=== PATIENT | male | born 1950 | race Hispanic/Latino ===

== ENCOUNTER 2020-01-16 12:07 | Inpatient (IN) ==
[2020-01-16] MEDS ORDERED: LEVAQUIN 750 MG in NS 150 ML IV ONE (12:58)
[2020-01-16] MEDS ORDERED: VANCOMYCIN 1 GM/NS 1 GM/250 ML IVPB IV ONE (13:00)
[2020-01-16 13:24] LABS: BASO# 0.09 X1000 (0.0-0.2); BASO% 1.1 % (0.0-0.8); EOS# 0.15 X1000 (0.0-0.7); EOS% 1.8 % (0.0-10.0); HEMOGLOBIN 14.2 g/dL (14.0-18.0); LYMPH# 1.62 X1000 (1.2-3.4); LYMPH% 19.7 % (20.5-51.1); MCHC 34.6 g/dL (33-37); MCV 86.7 FL (81-99); MONO# 0.68 X1000 (0.11-0.59); MONO% 8.3 % (1.7-9.3); MPV 10.6 FL (7.4-10.4); NEUT# 5.69 X1000 (1.4-6.5); NEUT% 69.1 % (42.2-75.2); PLT 205 X1000 (130-400); RBC 4.73 XMIL (4.7-6.1); RDW 12.3 % (11.5-14.5); WBC 8.23 X1000 (4.8-10.8)
--- NOTE | 2020-01-16 13:29 | Diag Imaging Result Doc PS360 ---
FOOT COMPLETE LEFT - 01/16/2020 INDICATION: diabetic foot, necrosis of 2-3 webspace/3rd toe TECHNIQUE: Three views COMPARISON: None FINDINGS: Bones are intact and normally aligned. There is diffuse pedal edema. No soft tissue gas. No bony erosions. There is calcified peripheral vascular disease. IMPRESSION: Pedal edema. Peripheral arterial disease. No acute process. Electronically signed by Isiah Chacko 01/16/2020 1:26 PM
[2020-01-16 13:53] LABS: ALB/GLOB RATIO 1.5; CALCIUM 9.3 mg/dL (8.8-10.2); CREATININE 1.5 mg/dL (0.7-1.2); MAGNESIUM 2.1 mg/dL (1.5-2.7); POTASSIUM 4.9 mmol/L (3.5-5.1); TOTAL BILIRUBIN 0.36 mg/dL (0.20-1.00); TOTAL PROTEIN 6.7 g/dL (6.3-8.3)
[2020-01-16] MEDS ORDERED: HUMULIN R IV ONE (14:31)
[2020-01-16] MEDS ORDERED: NS 1,000 ML IV ONE (14:32)
[2020-01-16 14:35] LABS: SED RATE 37 mm/hr (0-15)
[2020-01-16] MEDS ORDERED: ZOFRAN IV PRN (16:05)
[2020-01-16] MEDS: NS 1,000 ML IV SCH (16:33)
--- NOTE | 2020-01-16 16:47 | HISTORY AND PHYSICAL ---
CHIEF COMPLAINT: Left foot erythema, pain and ulcer. HISTORY OF PRESENT ILLNESS: A 69-year-old male with a past medical history of coronary artery disease status post CABG in 2006, prostate surgery 7 years ago in [place], he does not actually know why he had that surgery, but probably was TURP, history of diabetes which seems to be uncontrolled. The patient has no primary care doctor. As per the patient he has been using metformin 850 mg twice a day and insulin Novolin N 20 units twice a day. He does not measure his blood sugar readings at home or blood pressure. He presented today because of redness and pain and ulcer at the plantar surface at the base of third toe, left foot. It is not draining, but he has some redness around that area and also in the dorsal aspect of the left foot, is not associated with nausea, vomiting, fever or chills. Patient denies headache, shortness of breath, nausea, vomiting, constipation. He does have a mild pain in that area, though. He started noticing this lesion and redness last Saturday, 6 days ago. Apparently, he went to the doctor who recommended Bactrim, but he has been getting worse. He has been admitted. We will put this patient on antibiotics. Blood culture has been taken. I will ask the wound care nurse to evaluate this patient and depending on that, I will go ahead and ask surgery department to evaluate this patient as well. I will ask for a hemoglobin A1c and lipid panel as well. His initial blood pressure is slightly elevated, as well as his creatinine. PHYSICAL EXAMINATION: VITAL SIGNS: Temperature 98.1 degrees, pulse 76, respiratory rate 16, blood pressure 156/65, oxygen saturation 100% on room air. HEENT: Head normocephalic, no trauma. PERRLA. NECK: Supple. No JVD. No masses. Central trachea. CHEST: Clear to auscultation. No wheezing. No rales. He has a midline scar in the middle of the sternal area due to previous CABG. ABDOMEN: Soft, nontender, nondistended. No hepatosplenomegaly. EXTREMITIES: No clubbing. He has erythema at the level of the dorsal aspect of the left foot as well as around the base of the 3rd toe with an ulcer that is dark, but is not draining any kind of secretion. NEUROLOGICAL: The patient is awake, alert. He is oriented x3. No focal deficits. REVIEW OF SYSTEMS: All the 14 points of review of systems were reviewed, all of them negative except as per HPI. PAST FAMILY HISTORY: Brother with diabetes and hypertension. His father due to gastric cancer. SOCIAL HISTORY: He works in a farm. He does not drink. He does not smoke or do drugs. PAST SURGICAL HISTORY: He had a CABG in 2006 and also he had some kind of prostate surgery done in [place] 7 years ago. ALLERGIES: Penicillins, apparently this caused rash and itchiness. BLOOD TRANSFUSIONS: None. LABORATORY: WBC 8.2, hemoglobin 14.2, hematocrit 41, platelets 205,000. Sodium 134, potassium 4.9, chloride 94, bicarbonate 24, BUN 24, creatinine 1.5, glucose 349, calcium 9.3, magnesium 2.1. AST 20, ALT 75, alkaline phosphatase 138. ASSESSMENT AND PLAN: 1. Diabetic foot ulcer. Initial x-ray did not show any bone abnormality. He does have some mild pedal edema, and peripheral arterial disease. I will go ahead and put this patient on antibiotics. Wound care has been consulted and probably surgery will be on board. I will monitor. 2. Likely uncontrolled diabetes. His glucose level is 349. As per the patient, he is not measuring his blood sugar at home and he does not have a primary care doctor. He has been using insulin Novolin N at home and metformin twice a day 850 mg. 3. Kidney dysfunction. I am not sure if this is new or chronic, but back in 2018, his creatinine was 1. He is getting some fluids. I will monitor this tomorrow, I will avoid nephrotoxic medications at this moment. 4. Possible hypertension, I will continue to monitor and I will put this patient on blood pressure medication if his blood pressure is still high. 5. I will ask for a hemoglobin A1c. I will also ask for a lipid profile. I will monitor this patient closely. Probably I will consult surgery at some point this or Saturday. cc: Meño Esquivel MD
[2020-01-16] MEDS: HUMALOG SUBQ SCH ×2 (16:57→21:19)
[2020-01-16] MEDS: HUMULIN 70/30 SUBQ SCH ×2 (17:11→21:19)
--- NOTE | 2020-01-16 17:25 | EKG Report ---
Test Performed on : 01/16/2020 1:24:56 PM Test Reason : peripheral vascular disease Blood Pressure : / mmHG Vent. Rate : 073 BPM Atrial Rate : 073 BPM P-R Int : 122 ms QRS Dur : 076 ms QT Int : 370 ms P-R-T Axes : 023 074 095 degrees QTc Int : 407 ms Normal sinus rhythm. Nonspecific ST and T wave abnormality Abnormal ECG When compared with ECG of 14-JUN-2018 12:55, No significant change was found Unconfirmed Result
[2020-01-16] MEDS: AZACTAM 1 GM in NS 50 ML IV SCH (21:19)
[2020-01-17] MEDS: ZYVOX 600 MG/D5W 600 MG/300 ML IVPB SCH ×2 (01:24→14:31)
[2020-01-17] MEDS ORDERED: INSULIN PEN NEEDLES ONE (06:08)
[2020-01-17] MEDS: HUMALOG SUBQ SCH ×4 (06:17→21:12)
[2020-01-17] MEDS: AZACTAM 1 GM in NS 50 ML IV SCH ×3 (06:19→21:12)
[2020-01-17] MEDS: NS 1,000 ML IV SCH ×2 (06:37→08:07)
[2020-01-17 06:43] LABS: BASO# 0.03 X1000 (0.0-0.2); BASO% 0.5 % (0.0-0.8); EOS# 0.08 X1000 (0.0-0.7); EOS% 1.3 % (0.0-10.0); HEMATOCRIT 40.9 % (42.0-52.0); HEMOGLOBIN 13.9 g/dL (14.0-18.0); LYMPH# 1.38 X1000 (1.2-3.4); LYMPH% 21.9 % (20.5-51.1); MCH 29.6 PG (27-31); MONO# 0.46 X1000 (0.11-0.59); MONO% 7.3 % (1.7-9.3); MPV 10.5 FL (7.4-10.4); NEUT# 4.36 X1000 (1.4-6.5); PLT 194 X1000 (130-400); RDW 12.2 % (11.5-14.5); WBC 6.31 X1000 (4.8-10.8)
[2020-01-17 06:52] LABS: HEMOGLOBIN A1C 10.7 % (4.8-6.0)
--- NOTE | 2020-01-17 06:54 | GENERAL SURGERY CONSULTATION ---
DATE: 01/17/2020 HISTORY OF PRESENT ILLNESS: This is a pleasant, 69-year-old, -speaking male who comes in with some left foot discoloration and an ulcer on the base of his third toe posteriorly, on the plantar aspect. He apparently has no medical doctor, is diabetic, and his diabetes care has been suboptimal. He is admitted for care of his left third toe infection. PAST SURGICAL HISTORY: Previous surgery includes coronary artery bypass and some type of prostate surgery. MEDICATIONS: Include metformin 850 mg b.i.d. and Bactrim that he was given this past week. ALLERGIES: He has an allergy to penicillin. FAMILY HISTORY: Pertinent for diabetes, hypertension, gastric cancer in his father. 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 Denies smoking. REVIEW OF SYSTEMS: Really not obtainable but as best I could determine, is typical of what was mentioned in his history of present illness. PHYSICAL EXAMINATION: Vital Signs: He is afebrile, heart rate 65, respiratory rate 18, blood pressure 143/62. No cervical adenopathy. Bilateral breath sounds are present and clear. Heart: Regular rate and rhythm. Abdomen: Soft. Minimal tenderness in the left lower quadrant. Extremities: Femoral pulses are present and normal. He has a normal right dorsalis pedis pulse. I do not palpate pedal pulses in his left foot. The ulceration at the base of the third toe on the plantar aspect, there is no purulence, no fluctuance. There is some mild erythema on the dorsum of his foot at the base of the third toe. ASSESSMENT: Diabetic foot ulcer. The x-ray does not show any evidence of osteomyelitis. Hopefully, this will improve with appropriate diabetes care and antibiotic therapy. I will get a lower extremity arterial study while he is here in the hospital. cc: Jose Bruno MD
[2020-01-17 07:27] LABS: AGAP 11; ALB/GLOB RATIO 1.6; ALBUMIN 3.8 g/dL (3.5-5.0); ALKALINE PHOSPHATASE 112 U/L (32-122); BUN 20 mg/dL (8-22); CALCIUM 9.4 mg/dL (8.8-10.2); CHLORIDE 101 mmol/L (98-107); CHOLESTEROL 136 mg/dL (0-200); COSMO 274; CREATININE 1.2 mg/dL (0.7-1.2); ESTIMATED GFR 60; GLUCOSE 125 mg/dL (70-104); GOT 15 U/L (10-34); GPT 12 U/L (10-44); HDL 46 mg/dL (35-55); LDL 76 mg/dL; POTASSIUM 4.5 mmol/L (3.5-5.1); SODIUM 135 mmol/L (136-145); TCO2 23 mmol/L (25-35); TOTAL BILIRUBIN 0.42 mg/dL (0.20-1.00); TOTAL PROTEIN 6.2 g/dL (6.3-8.3); TRIGLYCERIDES 71 mg/dL (39-160); VLDL 14 mg/dL
[2020-01-17] MEDS ORDERED: HUMULIN 70/30 SUBQ ONE (07:57)
--- NOTE | 2020-01-17 14:04 | PROGRESS NOTE ---
DATE: 01/17/2020 SUBJECTIVE: The patient seems to be getting better. Surgery Department has evaluated this patient, and they have suggested to do a lower extremity arterial study done during this hospitalization. His hemoglobin A1c is 10.7. I have placed this patient on insulin 70/30, 15 units in the morning and 10 in the afternoon, and I will adjust the dose accordingly. PHYSICAL EXAMINATION: Vital signs: Temperature 98.4 degrees, pulse 68, respiratory rate 16, blood pressure 135/68, oxygen saturation 97% on room air. HEENT: Head normocephalic, no trauma, PERRLA. Neck: Supple. No JVD. No masses. Central trachea. Chest: Clear to auscultation. No wheezing. No rales. He has a midline scar in his chest due to previous CABG. Abdomen: Soft, nontender, nondistended. No hepatosplenomegaly. Extremities: No clubbing. He has erythema at the level of the dorsal aspect of the left foot as well as around the dorsal aspect of the base of the 3rd toe. The ulcer is dark. I do not see any drainage. Neurological: Patient is awake, alert. He is oriented. No focal deficits. LABORATORY: WBC 6.3, hemoglobin 13.9, hematocrit 40.9, platelets 194,000. Sodium 135, potassium 4.5, chloride 101, bicarbonate 23, BUN 20, creatinine 1.2, glucose 125, calcium 9.4, triglycerides 71, cholesterol 136, LDL 76, HDL 46. ASSESSMENT AND PLAN: 1. Diabetic foot ulcer with cellulitis at the level of the left foot. This seems to be getting better. I will continue with the same management for now. Wound Care has been consulted as well as Surgery Department. Surgery has requested an arterial study on this patient. 2. Uncontrolled diabetes with a hemoglobin A1c of 10.7. I have placed this patient on insulin 70/30. I will adjust the dose as well. Also I will start this patient on metformin. 3. Kidney dysfunction. This is getting better with IV fluids. The creatinine decreased from 1.5 to 1.2. We will continue to monitor. 4. Possible hypertension. The blood pressure has been up and down between the lowest 107/53 and the highest 156/65. He is on IV fluids. For now I will monitor, but upon discharge likely I will put him on a low dose of HOLLY inhibitor or angiotensin-receptor blockers. cc: Meño Esquivel MD
[2020-01-17] MEDS ORDERED: HUMULIN 70/30 SUBQ SCH (16:30)
[2020-01-17] MEDS: GLUCOPHAGE PO SCH (16:35)
[2020-01-18] MEDS: NS 1,000 ML IV SCH ×3 (01:38→10:42)
[2020-01-18] MEDS: ZYVOX 600 MG/D5W 600 MG/300 ML IVPB SCH ×2 (02:39→12:06)
[2020-01-18] MEDS: AZACTAM 1 GM in NS 50 ML IV SCH ×3 (06:21→21:59)
[2020-01-18] MEDS: HUMALOG SUBQ SCH ×4 (06:24→21:59)
[2020-01-18 06:48] LABS: CALCIUM 8.6 mg/dL (8.8-10.2); CREATININE 1.2 mg/dL (0.7-1.2); POTASSIUM 4.7 mmol/L (3.5-5.1)
[2020-01-18] MEDS: HUMULIN 70/30 SUBQ SCH ×3 (08:00→17:30)
[2020-01-18] MEDS: GLUCOPHAGE PO SCH ×2 (08:50→17:31)
--- NOTE | 2020-01-18 15:00 | PROGRESS NOTE ---
DATE: 01/18/2020 SUBJECTIVE: The patient seems to be feeling better. As per the patient, he felt a little bit dizzy yesterday night, but the blood sugar dropped to the 87 and 89, and he recovered after getting some snack. Today he has an arterial study done, pending results and pending surgery department reevaluation. OBJECTIVE: Vital Signs: Temperature 98.1 degrees, pulse 71, respiratory rate 18, blood pressure 146/68, oxygen saturation 98 on room air. HEENT: Head normocephalic, no trauma, PERRLA. Neck: Supple. No JVD. No masses. Central trachea. Chest: Clear to auscultation. No wheezing. No rales. He has a midline scar in the middle of the chest due to previous CABG. Abdomen: Soft, nontender, nondistended. No hepatosplenomegaly. Extremities: No clubbing. He has some mild edema with erythema at the level of the dorsal aspect of the left foot as well as the base of the 3rd toe, there is an ulcer that is dark, but I do not see any secretion. Neurological: Patient is awake. He is alert. He is oriented. No focal deficits. LABORATORY: Sodium 132, potassium 4.7, chloride 101, bicarbonate 22, BUN 17, creatinine 1.2, glucose 236, calcium 8.6. ASSESSMENT AND PLAN: 1. Diabetic foot ulcer with cellulitis at the level of the left foot, seems to be getting better. Continue with same management. Wound care has been consulted as well as Surgery Department. Surgery has requested an arterial study that has been done already, but pending results. 2. Uncontrolled type 2 diabetes with a hemoglobin A1c of 10.7, I have placed this patient on insulin 70/30. I have readjusted the doses the dose today. I increased the morning dose to 25 and I will keep the night dose on 10. 3. Kidney dysfunction, he is getting IV fluids. His creatinine has been stable. Initially, he came in with a BUN of 24 and creatinine 1.5 and now is down to 17 and 1.2 respectively. 4. Possible hypertension. I will go ahead right now and stop the IV fluids. Since he has diabetes, I will go ahead and put this patient on a low dose of lisinopril to see how he does and protect the kidneys. 5. Overall this patient seems to be getting better. I do believe this patient can be discharged with probably doxycycline to cover methicillin-resistant Staphylococcus aureus infection. We have placed this patient on 70/30 because it is cheap and he does not have a primary care doctor. I talked to the patient and I told him that he needs to have a primary doctor so he can control his blood sugar. He seems to understand. Pending arterial study that has been already done, I readjusted his insulin today. Hopefully this patient can be discharged in the next 24 to 48 hours. cc: Meño Esquivel MD
--- NOTE | 2020-01-18 16:09 | GENERAL SURGERY PROGRESS NOTE ---
DATE: 01/18/2020 SUMMARY: I have not seen his arterial study yet. His wound is a little bit darkish, discolored. After using Vashe, I will recommend use of Silvadene to help provide antibacterial coverage topically. cc: Jose Bruno MD
[2020-01-18] MEDS ORDERED: HUMULIN 70/30 SUBQ SCH (16:30)
--- NOTE | 2020-01-18 17:44 | VASCULAR LAB ---
DATE: 01/18/2020 BUSINESS TECHNOLOGY ANALYST: Romana. REQUESTING PHYSICIAN: Jose Bruno MD. INDICATIONS: Lower extremity ulcer. FINDINGS: Brachial pressure on the right is 152, on the left 155. Low thigh on the right is 191, left is 132. Calf on the right is 207, left is 119. DP on the right is 179, on the left is 66. PT on the right is 165, on the left 91. Toe pressure on the right is 132, on the left 27. IMPRESSION: On the right lower extremity, there is relatively normal appearing waveforms and normal ABIs and total brachial indices on the right. On the left, there is significant blunting noted throughout, but most evident at the stepoff in the tibial vessels, consistent with a distal superficial femoral artery or popliteal lesion. There is significant blunting and near flat line of the waveform is noted worse in toes 1, 2 and 3 but again still blunting in 4 and 5. CONCLUSIONS: Moderate degree of atherosclerotic changes on the left with relatively normal appearing waveforms on the right. Recommend correlation with angiography if clinically indicated. cc: MD Jose Adam MD
[2020-01-19] MEDS: ZYVOX 600 MG/D5W 600 MG/300 ML IVPB SCH ×3 (01:17→23:37)
[2020-01-19 06:18] LABS: BASO# 0.04 X1000 (0.0-0.2); BASO% 0.6 % (0.0-0.8); EOS# 0.21 X1000 (0.0-0.7); HEMATOCRIT 40.9 % (42.0-52.0); HEMOGLOBIN 13.9 g/dL (14.0-18.0); LYMPH# 2.04 X1000 (1.2-3.4); LYMPH% 29.1 % (20.5-51.1); MCH 29.7 PG (27-31); MCV 87.4 FL (81-99); MONO# 0.75 X1000 (0.11-0.59); MONO% 10.7 % (1.7-9.3); MPV 10.3 FL (7.4-10.4); NEUT# 3.97 X1000 (1.4-6.5); NEUT% 56.6 % (42.2-75.2); PLT 216 X1000 (130-400); RBC 4.68 XMIL (4.7-6.1); RDW 12.3 % (11.5-14.5); WBC 7.01 X1000 (4.8-10.8)
[2020-01-19 06:37] LABS: CALCIUM 8.8 mg/dL (8.8-10.2); CREATININE 1.2 mg/dL (0.7-1.2); POTASSIUM 4.8 mmol/L (3.5-5.1)
[2020-01-19] MEDS: AZACTAM 1 GM in NS 50 ML IV SCH ×3 (06:51→21:39)
[2020-01-19] MEDS: HUMALOG SUBQ SCH ×4 (06:51→21:39)
[2020-01-19] MEDS ORDERED: HUMULIN 70/30 SUBQ SCH (07:00)
[2020-01-19] MEDS: HUMULIN 70/30 SUBQ SCH ×2 (08:31→17:33)
[2020-01-19] MEDS: PRINIVIL PO SCH (08:32)
[2020-01-19] MEDS: SSD CREAM TOP SCH (08:32)
[2020-01-19] MEDS: GLUCOPHAGE PO SCH ×2 (08:32→17:32)
--- NOTE | 2020-01-19 09:34 | GENERAL SURGERY PROGRESS NOTE ---
DATE: 01/19/2020 He remains afebrile with stable hemodynamics. I reviewed his lower extremity arterial study. He has an SFA occlusion on the left. I will get a CTA with runoff to see if we can improve flow to his foot in order to help save his toe. I have discussed this with him through a distribution center manager. He understands. cc: Jose Bruno MD
[2020-01-19] MEDS: DIFLUCAN PO SCH (14:34)
--- NOTE | 2020-01-19 14:48 | Diag Imaging Result Doc PS360 ---
CT ANGIOGRAM AORTA W/RUNOFF - 01/19/2020 INDICATION: atherosclerosis with ulceration TECHNIQUE: Axial CT images were obtained after administering intravenous contrast. Three-dimensional angiographic images were generated. COMPARISON: None FINDINGS: The lung bases are clear and the heart size is normal. There is a large left renal cyst. This is a benign, simple cyst. This measures 8.6 x 8 cm. Otherwise abdominal organs appear normal. No bowel obstruction or inflammation. There is mild scattered disease of the abdominal aorta but no aneurysm or significant disease. On the right side, the iliac artery system is patent. The femoral arteries are all patent. There is significant calcified vascular disease of the distal popliteal artery and all the trifurcation arteries. However, the contrast bolus was possibly missed in these arteries are not really opacified. On the left side, there is some mild plaque buildup of the proximal common iliac artery with about 20% stenosis. Otherwise the iliac arteries are all patent. There is some moderate vascular disease throughout the superficial femoral artery, but the femoral arteries are all patent with no significant stenosis. There appears to be focal critical stenosis of the popliteal artery just [id number] joint. There is about 90% stenosis here. There is some opacification of the arteries of the calf. The anterior and posterior tibial arteries do not fill with contrast. The peroneal artery runs off to the foot. IMPRESSION: 1. Possibly poor contrast timing of the right lower leg. Alternately, there could be such high-grade popliteal stenosis that this is poorly perfused. A repeat exam of this area can be performed at no cost if desired. 2. 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 Apparent occlusion of the left anterior and posterior tibial arteries. 3. No significant inflow disease. This exam was performed using automated exposure control, adjustment of mA or kV according to patient size, and/or use of iterative reconstruction technique Electronically signed by Isiah Chacko 01/19/2020 2:45 PM
--- NOTE | 2020-01-19 14:53 | PROGRESS NOTE ---
DATE: 01/19/2020 SUBJECTIVE: Patient reports feeling fine. He has intermittent pain in the affected extremity in this case, the left foot. OBJECTIVE: Vital signs: Temperature 97.9 degrees, heart rate 82, respiratory rate 20, blood pressure 140/82, O2 saturation 99% on room air. General: This is a chronically ill-appearing, 69- year-old male, lying in bed, in no acute distress. Cardiovascular: S1, S2 heard. No murmurs, gallops, or rubs. Regular rate and rhythm. Respiratory: Exam is clear bilaterally to auscultation. No work of breathing or using accessory muscles. Abdomen: Soft, nontender to palpation. Bowel sounds present. No organomegaly. Extremities: No clubbing, cyanosis, or edema. Peripheral pulses present in both legs. Neurological: The patient is alert and oriented x3. Moves 4 extremities. In the left lower extremity, no clubbing or cyanosis. The patient has some edema and erythema at the level of the dorsal aspect of the left foot as well at the base of the 3rd toe where there is a dark ulcer noted but no drainage noted. Neurological exam: Patient is alert and oriented x3. Moves 4 extremities. LABORATORY DATA: White cell count 7.01 hemoglobin 13.9, hematocrit 40.9, platelets 216,000 with normal BMP. ASSESSMENT AND PLAN: 1. Diabetic foot ulcer with cellulitis at the level of the left foot. Seems to be getting better. Dr. Bruno from General Surgery has ordered an aorta runoff to see the patency of the arterial system. We will see what he has to say tomorrow. 2. Uncontrolled diabetes mellitus type 2. Patient is on insulin 70/30. We will continue with the same management. The patient has diabetes for last 24 years. 3. Chronic kidney disease stage 3. We will continue. 4. Acute kidney injury. Apparently, that condition is resolved. His creatinine is back to normal. GFR is greater than 60. 5. Possible hypertension. Patient has been started on low doses of lisinopril and that will help also to renal protection, will continue with the same management. 6. Disposition. We will see what the aorta runoff shows tomorrow and what Dr. Bruno has to say. We will go from there. cc: Guru Resendez MD
[2020-01-19] MEDS: TYLENOL PO PRN (21:41)
[2020-01-20] MEDS ORDERED: INSULIN PEN NEEDLES ONE (06:03)
[2020-01-20] MEDS: AZACTAM 1 GM in NS 50 ML IV SCH ×3 (06:08→23:24)
[2020-01-20] MEDS: HUMALOG SUBQ SCH ×4 (06:29→21:00)
[2020-01-20 06:40] LABS: BASO# 0.03 X1000 (0.0-0.2); BASO% 0.5 % (0.0-0.8); EOS# 0.21 X1000 (0.0-0.7); EOS% 3.3 % (0.0-10.0); HEMOGLOBIN 13.9 g/dL (14.0-18.0); IMM GRAN# 0.02 X1000 (0.0-0.04); IMM GRAN% 0.3 % (0.0-0.5); LYMPH# 2.03 X1000 (1.2-3.4); MCH 29.6 PG (27-31); MCHC 33.9 g/dL (33-37); MCV 87.4 FL (81-99); MONO# 0.58 X1000 (0.11-0.59); MONO% 9.1 % (1.7-9.3); MPV 10.5 FL (7.4-10.4); NEUT# 3.48 X1000 (1.4-6.5); NEUT% 54.8 % (42.2-75.2); PLT 229 X1000 (130-400); RBC 4.69 XMIL (4.7-6.1); RDW 12.5 % (11.5-14.5); WBC 6.35 X1000 (4.8-10.8)
[2020-01-20 07:10] LABS: ALBUMIN 3.5 g/dL (3.5-5.0); CALCIUM 8.9 mg/dL (8.8-10.2); CREATININE 1.2 mg/dL (0.7-1.2); PHOSPHORUS 4.7 mg/dL (2.7-4.5)
[2020-01-20] MEDS: DIFLUCAN PO SCH (08:22)
[2020-01-20] MEDS: PRINIVIL PO SCH (08:22)
[2020-01-20] MEDS: SSD CREAM TOP SCH (08:23)
[2020-01-20] MEDS: HUMULIN 70/30 SUBQ SCH ×2 (08:23→17:31)
--- NOTE | 2020-01-20 08:29 | GENERAL SURGERY PROGRESS NOTE ---
DATE: 01/20/2020 SUBJECTIVE: Mr. Collins's wound looks about the same. OBJECTIVE: His CTA showed occlusion of his left popliteal should be amenable to an atherectomy and angioplasty. PLAN: I have recommended that to him in order to improve the flow to his foot in hopes that his toe can be salvaged. If he comes to amputation, it should certainly improve the chance that he would heal a toe amputation. I have discussed this with him. We have him scheduled for Saturday morning for the atherectomy, possible balloon angioplasty of his left popliteal. I will hold his metformin today in view of the fact that he had contrast yesterday. cc: Jose Bruno MD
--- NOTE | 2020-01-20 11:28 | PROGRESS NOTE ---
DATE: 01/20/2020 SUBJECTIVE: The patient reports feeling okay. No nausea or vomiting. OBJECTIVE: Vital Signs: Temperature 97.7 degrees, heart rate 65, respiratory rate 18, blood pressure 120/61, O2 saturation 98% on room air. General: This is a chronically ill-looking, 69- year-old, male, lying in bed in no acute distress. Cardiovascular: S1, S2 heard. No murmurs, gallops, or rubs. Regular rate and rhythm. Respiratory: Clear bilaterally to auscultation. No work of breathing. Not using accessory muscles. Abdomen: Soft, nontender to palpation. Bowel sounds present. No organomegaly. Extremities: The patient has edema and erythema at the level of the dorsal aspect of the left foot, as well as the base of the third toe where there is a dark ulcer noted, but no drainage coming out. Neurological: The patient is alert and oriented x3. Moves all 4 extremities. LABORATORY DATA: Reviewed. ASSESSMENT AND PLAN: 1. Diabetic foot ulcer with cellulitis at the level of the foot. Dr. Bruno is following this patient. He ordered yesterday, a CT aortogram with run off, which basically showed occlusion of the left popliteal that could be amenable for an arterectomy or angioplasty, so the patient has been scheduled for surgery for atherectomy, possible balloon angioplasty of the left popliteal. We appreciate Dr. Bruno's input. Will continue to monitor. 2. Uncontrolled diabetes mellitus type 2. Will continue with insulin 70/30. We are going to stop metformin at this time. I prefer to adjust the doses of insulin. 3. Acute kidney injury. Creatinine is back to normal. GFR greater than 60. 4. Hypertension. The patient is on low dose of lisinopril. Blood pressure is okay. Will continue to monitor. 5. Disposition. At this point, the patient has been scheduled for surgery this Saturday. Will continue with current management. cc: Guru Resendez MD
[2020-01-20] MEDS: ZYVOX 600 MG/D5W 600 MG/300 ML IVPB SCH ×2 (12:30→23:24)
[2020-01-20] MEDS: TYLENOL PO PRN (23:25)
[2020-01-21] MEDS: AZACTAM 1 GM in NS 50 ML IV SCH ×3 (06:57→22:13)
[2020-01-21] MEDS: HUMALOG SUBQ SCH ×4 (06:58→22:03)
[2020-01-21 07:04] LABS: BASO# 0.11 X1000 (0.0-0.2); BASO% 1.6 % (0.0-0.8); EOS# 0.19 X1000 (0.0-0.7); EOS% 2.8 % (0.0-10.0); HEMATOCRIT 39.5 % (42.0-52.0); HEMOGLOBIN 13.4 g/dL (14.0-18.0); IMM GRAN# 0.02 X1000 (0.0-0.04); IMM GRAN% 0.3 % (0.0-0.5); LYMPH# 2.03 X1000 (1.2-3.4); LYMPH% 29.7 % (20.5-51.1); MCH 29.8 PG (27-31); MCHC 33.9 g/dL (33-37); MCV 87.8 FL (81-99); MONO# 0.55 X1000 (0.11-0.59); MPV 10.3 FL (7.4-10.4); NEUT# 3.94 X1000 (1.4-6.5); NEUT% 57.6 % (42.2-75.2); PLT 232 X1000 (130-400); RDW 12.4 % (11.5-14.5); WBC 6.84 X1000 (4.8-10.8)
[2020-01-21 07:22] LABS: ALBUMIN 3.6 g/dL (3.5-5.0); CREATININE 1.3 mg/dL (0.7-1.2); PHOSPHORUS 4.2 mg/dL (2.7-4.5); POTASSIUM 4.3 mmol/L (3.5-5.1)
[2020-01-21] MEDS: HUMULIN 70/30 SUBQ SCH ×3 (08:27→16:49)
[2020-01-21] MEDS: PRINIVIL PO SCH (08:31)
[2020-01-21] MEDS: DIFLUCAN PO SCH (08:31)
[2020-01-21] MEDS: SSD CREAM TOP SCH (08:32)
--- NOTE | 2020-01-21 09:48 | GENERAL SURGERY PROGRESS NOTE ---
DATE: 01/21/2020 His toe looks about the same. We plan the left femoral access atherectomy and possible angioplasty for Saturday. I once again spoke with him through an asl interpreter and answered his questions. He understands. He has spoken with his family. They all agree for us to proceed. The plan is for tomorrow morning, the . cc: Jose Bruno MD
[2020-01-21] MEDS: ZYVOX 600 MG/D5W 600 MG/300 ML IVPB SCH (11:30)
--- NOTE | 2020-01-21 14:14 | PROGRESS NOTE ---
DATE: 01/21/2020 SUBJECTIVE: I have seen and examined Mr. Day. Mr. Day refers to be feeling a lot better. Still has some mild pain in the right lower extremity. He is pending a vascular intervention with Dr. Bruno tomorrow. OBJECTIVE: Vital Signs: Blood pressure 124/58, pulse of 73, respirations 16, temperature 98.1 degrees. General: Mr. Day is a 69-year-old, gentleman. He was sitting in the in the chair. No distress. HEENT: Mucosa is pink and moist. Anicteric. Acyanotic. Neck: Supple. I did not hear any carotid bruit. No JVD. Chest: Air entry is bilaterally reduced, but no crepitations, no rhonchi. Cardiovascular: Regular rate and rhythm. There are no murmurs, no rubs, no gallops. There is an old sternotomy scar on the anterior chest wall. GI: Abdomen is soft, nontender. Bowel sounds present. Extremities: No pedal edema. Distal pulse is almost imperceptible on the left, but normal on the right. The left lower extremity also has mild erythematous changes on the dorsum, mainly over the second, third, and fourth digits. The third digit also has some ulceration on the base. BANK APPRAISER: The patient is awake, alert, oriented. There is no focal deficit. LABORATORY DATA: CBC is unremarkable. Chemistry is also unremarkable. Glucose is 166. The patient's A1c was 10.7. He is currently on insulin regimen. ASSESSMENT: 1. Diabetic foot ulcer under the left third toe, associated with cellulitis. The patient is on antimicrobial coverage. 2. Severe bilateral peripheral vascular disease, worse on the left, with CTA showing a critical stenosis of the left popliteal artery. The patient is pending a vascular intervention tomorrow. 3. Diabetes mellitus with presenting A1c of 10.7. The patient is on insulin regimen. Will continue to titrate for better glycemic control. 4. Hypotension, controlled. 5. History of coronary artery disease, status post coronary artery bypass graft in the past. Noted. 6. Tinea pedis. The patient is on fluconazole. In general, I think Mr. Day is doing well. We are going to go ahead and put him on low-dose aspirin, as well as statin drug for his diffuse atherosclerotic disease. Will continue with his insulin, blood pressure control, and await surgery tomorrow. cc: Cisco Pepper MD
[2020-01-21] MEDS: PRAVACHOL PO SCH (22:03)
[2020-01-22] MEDS: ZYVOX 600 MG/D5W 600 MG/300 ML IVPB SCH ×2 (00:10→12:03)
[2020-01-22] MEDS: AZACTAM 1 GM in NS 50 ML IV SCH ×2 (06:06→16:26)
[2020-01-22] MEDS ORDERED: HEPARIN ONE ×2 (06:22→06:23)
[2020-01-22] MEDS ORDERED: NS 2,000 ML ONE (06:23)
[2020-01-22] MEDS ORDERED: QUELICIN (DOSE) ONE (06:36)
[2020-01-22] MEDS ORDERED: XYLOCAINE-MPF 2% ONE (06:36)
[2020-01-22] MEDS ORDERED: NORCURON ONE (06:36)
[2020-01-22] MEDS ORDERED: DIPRIVAN 1% ONE (06:36)
[2020-01-22] MEDS ORDERED: SODIUM CHLORIDE 0.9% 10 ML ONE (06:36)
[2020-01-22 06:54] LABS: ALBUMIN 3.5 g/dL (3.5-5.0); CALCIUM 9.2 mg/dL (8.8-10.2); CREATININE 1.2 mg/dL (0.7-1.2); POTASSIUM 4.9 mmol/L (3.5-5.1)
[2020-01-22] MEDS ORDERED: HEPARIN (DOSE) ONE (07:21)
[2020-01-22] MEDS ORDERED: ZOFRAN ONE (07:23)
[2020-01-22] MEDS ORDERED: EPHEDRINE ONE (07:24)
[2020-01-22 07:49] LABS: URINE SOURCE CATH
[2020-01-22 07:54] LABS: BILIRUBIN URINE NEGATIVE (NEGATIVE); BLOOD URINE NEGATIVE (NEGATIVE); COLOR YELLOW; GLUCOSE URINE TRACE mg/dL (NEGATIVE); KETONE URINE NEGATIVE (NEGATIVE); LEUKOCYTES URINE NEGATIVE (NEGATIVE); NITRITE URINE NEGATIVE (NEGATIVE); PH URINE 6.5; PROTEIN URINE 30 mg/dL (NEGATIVE); SP GRAVITY URINE 1.012; TURBIDITY URINE CLEAR (CLEAR); UROBILINOGEN URINE 2 mg/dL (NORMAL)
[2020-01-22 07:55] LABS: UR EPITHELIAL CELLS <10 /HPF (<10); URINE BACTERIA NEGATIVE /HPF; URINE RBC <10 /HPF (<10); URINE WBC <10 /HPF (<10)
--- NOTE | 2020-01-22 08:35 | OPERATIVE NOTE ---
PROCEDURE DATE: 01/22/2020 NAME OF THE PROCEDURE: 1. Left femoral artery access with ultrasound guidance antegrade approach. 2. Left popliteal artery atherectomy with an H1-LS atherectomy catheter and then followed by a 5 x 6 cm IN.PACT drug-coated balloon angioplasty. SURGEON: Jose Bruno MD. SENIOR ENERGY CONSULTANT: Marisela. 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 POSTOPERATIVE DIAGNOSIS: Left popliteal occlusion with ulceration of the third toe. DESCRIPTION OF PROCEDURE: After satisfactory general anesthesia was achieved, the right groin, left groin and left leg were prepped and draped in a sterile fashion. With ultrasound guidance, we imaged the left common femoral artery and accessed it with an antegrade approach Seldinger technique, passed a 7-Estonian sheath into the superficial femoral artery, 5000 units of heparin were given. We then shot a arteriogram revealing the left popliteal occlusion. There was 1 vessel runoff to the foot, it was a peroneal artery and then collateralized the posterior tibial at the ankle. We passed a Glidewire down to the occlusion and then with the help of the TrailBlazer we traversed the left popliteal occlusion and we proved we were in the distal benton vessel with arteriography. We then switched to an 0.014 Nitrex wire. We then used an H1-LS atherectomy catheter and treated the occlusion that really went for about 5 cm and we treated it all 4 quadrants. Completion arteriogram revealed patency to the vessel. We then used a 5 mm x 6 cm IN.PACT balloon and deployed it across the area of occlusion for 3 minutes according to manufacturing specifications. After that drug was deployed, we then deflated the balloon, brought it back up through the adductor canal and once again inflated it to nominal pressures at 8 atmospheres for 1 minute because a small narrowing was noted there. Completion arteriogram then showed complete resolution of the stenosis and occlusion in the popliteal, no evidence of extravasation. We then removed our wire. We used a Mynx closure device according to manufacturing specifications to plug the hole in the artery. We held pressure then for 6 minutes. There was no evidence of bleeding. We then applied a pressure dressing. He tolerated the procedure satisfactorily. Estimated blood loss was 10 mL, 68 mL of contrast was used. cc: Jose Bruno MD
[2020-01-22] MEDS: HUMALOG SUBQ SCH ×4 (09:12→21:13)
--- NOTE | 2020-01-22 11:53 | PROGRESS NOTE ---
DATE: 01/22/2020 SUBJECTIVE: When I evaluated this patient, he was coming back from surgery. He was completely awake and alert. He was complaining of some dizziness and some throat discomfort, but in general he seems to be better. OBJECTIVE: Vital Signs: Temperature 97.3 degrees, pulse 90, respiratory rate 18, blood pressure 140/73, oxygen saturation 100%. HEENT: Head is normocephalic, no trauma, PERRLA. Neck: Supple. No JVD. No masses. Central trachea. Chest: Clear to auscultation. No wheezing. He has a midline scar in the middle of the chest due to previous CABG. Abdomen: Soft, nontender, nondistended. No hepatosplenomegaly. Extremities: No clubbing, no cyanosis. He has a dressing covering his left foot and leg. I do not see any active bleeding or secretion. Neurological: Patient is awake, alert. He is answering my questions. He is following commands. He is a little bit dizzy. LABORATORY: Sodium 138, potassium 4.9, chloride 102, bicarbonate 24, BUN 18, creatinine 1.2, glucose 202, calcium 9.2, albumin 3.5. ASSESSMENT AND PLAN: 1. Left popliteal occlusion with ulceration of the 3rd toe base, status post left femoral artery access with ultrasound guidance, antegrade approach, left popliteal artery atherectomy with an H1/LS atherectomy catheter and then followed by a 5 x 6 cm inch PACT drug-coated balloon angioplasty. It looks like he tolerated well the procedure. We will continue to monitor this patient closely. We will monitor. 2. Cellulitis at the level of the left foot, continue with antibiotics. 3. Uncontrolled type 2 diabetes with a hemoglobin A1c of 10.7. I have placed this patient on insulin 70/30. I will continue with 25 units in the morning, and I will increase the dose of the night from 10 to 12. 4. Kidney dysfunction, likely chronic. We will continue with same management. 5. Possible hypertension. I will monitor for now. He has been placed on a low dose of lisinopril. cc: Meño Esquivel MD
[2020-01-22] MEDS: PRINIVIL PO SCH (12:02)
[2020-01-22] MEDS: ASPIRIN PO SCH (12:02)
[2020-01-22] MEDS: DIFLUCAN PO SCH (12:03)
[2020-01-22] MEDS: HUMULIN 70/30 SUBQ SCH ×2 (12:06→16:31)
[2020-01-22] MEDS: SSD CREAM TOP SCH (12:07)
[2020-01-22] MEDS: PLAVIX PO SCH (12:13)
--- NOTE | 2020-01-22 13:44 | GENERAL SURGERY PROGRESS NOTE ---
DATE: 01/22/2020 Mr. Day is now about 5 hours after his atherectomy and balloon angioplasty. His left groin shows no signs of swelling or bleeding. It does not cause him any pain. His left foot has a palpable posterior tibial pulse that is 1+ now that was absent before. He is progressing satisfactorily. He will be able to get up out of the bed tomorrow, 01/22, and his bandage in his groin can be removed in the morning, 01/22. Dr. Patel is to cover the weekend. cc: Jose Bruno MD
[2020-01-22] MEDS: PRAVACHOL PO SCH (21:13)
[2020-01-23] MEDS: AZACTAM 1 GM in NS 50 ML IV SCH ×3 (01:00→16:55)
[2020-01-23] MEDS: ZYVOX 600 MG/D5W 600 MG/300 ML IVPB SCH ×2 (01:36→11:44)
[2020-01-23 05:56] LABS: HEMATOCRIT 38.2 % (42.0-52.0); HEMOGLOBIN 12.8 g/dL (14.0-18.0)
[2020-01-23] MEDS ORDERED: INSULIN PEN NEEDLES ONE (06:03)
[2020-01-23 06:13] LABS: CALCIUM 8.7 mg/dL (8.8-10.2); CREATININE 1.2 mg/dL (0.7-1.2)
[2020-01-23] MEDS: HUMALOG SUBQ SCH ×4 (06:53→21:19)
[2020-01-23] MEDS ORDERED: HUMULIN 70/30 SUBQ SCH (07:30)
[2020-01-23] MEDS: PLAVIX PO SCH (08:54)
[2020-01-23] MEDS: ASPIRIN PO SCH (08:54)
[2020-01-23] MEDS: PRINIVIL PO SCH (08:54)
[2020-01-23] MEDS: DIFLUCAN PO SCH (08:54)
--- NOTE | 2020-01-23 10:02 | PROGRESS NOTE ---
DATE: 01/23/2020 Mr. Day is status post left popliteal atherectomy per Dr. Bruno on 01/22/2020. His left groin remains dressed, we will remove that dressing. His left foot wound is being dressed every day. He remains on IV antibiotics. We will remove his Nelson catheter tube. He is on a diabetic diet. cc: Kiarra Patel MD
[2020-01-23] MEDS: SSD CREAM TOP SCH (11:49)
--- NOTE | 2020-01-23 12:45 | PROGRESS NOTE ---
DATE: 01/23/2020 SUBJECTIVE: The patient seems to be feeling better. The Nelson catheter will be removed. Hemoglobin and hematocrit are stable. His blood sugar has been elevated but he did not get his morning dose yesterday, let us see how he does today. OBJECTIVE: Vital Signs: Temperature 98 degrees, pulse 75, respiratory rate 20, blood pressure 111/55, oxygen saturation 99 on room air. HEENT: Head normocephalic, no trauma. PERRLA. Neck: Supple. No JVD. No masses. Central trachea. Chest: Clear to auscultation. No wheezing. He has a midline scar in the middle of the chest due to previous CABG. Abdomen: Soft, nontender, nondistended. No hepatosplenomegaly. Extremities: No clubbing. No cyanosis. He has a dressing covering his left foot. I do not see any active bleeding. Mild redness. Neurological: The patient is awake, alert, he is oriented, he is following commands. LABORATORY: Hemoglobin 12.8, hematocrit 38.2, sodium 137, potassium 5, chloride 101, bicarbonate 24, BUN 17, creatinine 1.2, glucose 252, calcium 8.7. ASSESSMENT AND PLAN: 1. Left popliteal occlusion with ulceration of the 3rd toe base, status post left femoral artery access with ultrasound guidance, antegrade approach, left popliteal artery atherectomy with an H1/LS atherectomy catheter and then followed by 5 x 6 inch PACT drug coated balloon angioplasty, it looks like he tolerated well the procedure and he is doing good. Surgery Department following this patient. 2. Cellulitis at the level of the left foot. Continue with antibiotics. 3. Uncontrolled type 2 diabetes with a hemoglobin A1c of 10.7. I readjusted his dose yesterday. I will continue with 25 units in the morning and 12 during the night. He did not get his morning dose yesterday and probably this is why his blood sugar is more than 200, let us see how he does today. 4. Likely chronic kidney disease. We will continue with same management, probably due to uncontrolled diabetes and hypertension. 5. Hypertension. His blood pressure seems to be better. I will continue with the same management. He is on a little dose of lisinopril at this moment. cc: Meño Esquivel MD
[2020-01-23] MEDS: HUMULIN 70/30 SUBQ SCH (16:15)
[2020-01-23] MEDS: PRAVACHOL PO SCH (21:19)
[2020-01-24] MEDS: ZYVOX 600 MG/D5W 600 MG/300 ML IVPB SCH ×2 (00:42→14:34)
[2020-01-24] MEDS: AZACTAM 1 GM in NS 50 ML IV SCH ×3 (00:42→18:24)
[2020-01-24 06:08] LABS: AGAP 11; BUN 16 mg/dL (8-22); CALCIUM 8.9 mg/dL (8.8-10.2); CHLORIDE 103 mmol/L (98-107); COSMO 280; CREATININE 1.1 mg/dL (0.7-1.2); ESTIMATED GFR > 60; GLUCOSE 127 mg/dL (70-104); POTASSIUM 4.1 mmol/L (3.5-5.1); SODIUM 139 mmol/L (136-145); TCO2 25 mmol/L (25-35)
[2020-01-24] MEDS: HUMALOG SUBQ SCH ×4 (06:47→23:00)
[2020-01-24] MEDS ORDERED: INSULIN PEN NEEDLES ONE (10:21)
[2020-01-24] MEDS: HUMULIN 70/30 SUBQ SCH (10:21)
[2020-01-24] MEDS: SSD CREAM TOP SCH (10:23)
[2020-01-24] MEDS: DIFLUCAN PO SCH (10:24)
[2020-01-24] MEDS: PRINIVIL PO SCH (10:24)
[2020-01-24] MEDS: ASPIRIN PO SCH (10:24)
[2020-01-24] MEDS: PLAVIX PO SCH (10:24)
--- NOTE | 2020-01-24 14:40 | PROGRESS NOTE ---
DATE: 01/24/2020 SUBJECTIVE: The patient seems to be feeling better today. He would like to go home, but I will wait 1 more day to try to stabilize his blood sugar better, and he can be seen by his surgeon tomorrow as well. OBJECTIVE: Vital Signs: Temperature 98.6 degrees, pulse 74, respiratory rate 20, blood pressure 147/67, oxygen saturation 95% on room air. HEENT: Head normocephalic. No trauma. PERRLA. Neck: Supple. No JVD. No masses. Central trachea. Chest: Clear to auscultation. No wheezing. He has a midline scar in the middle of the chest due to previous CABG. Abdomen: Soft, nontender, nondistended. No hepatosplenomegaly. Extremities: No clubbing. No cyanosis. He has a dressing covering his left foot. I do not see any active bleeding. Some mild redness. Neurological: The patient is awake and alert. He is oriented, following commands. LABORATORY DATA: Sodium 139, potassium 4.1, chloride 103, bicarbonate 25, BUN 16, creatinine 1.1, glucose 127, calcium 8.9. ASSESSMENT AND PLAN: 1. Left popliteal occlusion with ulceration of the third toe base, status post left femoral artery access with ultrasound guidance, antegrade approach, left popliteal artery atherectomy with an H1/LS atherectomy catheter, and then followed by a 5 x 6-inch PACT drug-coated balloon angioplasty. The patient tolerated well the procedure, and he is doing good. Surgery Department on board and following this patient. Will monitor. 2. Cellulitis at the level of the left foot. Continue with antibiotics. 3. Uncontrolled type 2 diabetes with a hemoglobin A1c of 10.7. I readjusted today again the dose of the insulin. Let us see how he does. 4. Likely chronic kidney disease. Continue with the same management. Likely due to uncontrolled type 2 diabetes. 5. Hypertension. Blood pressure seems to be better. Continue with the same management. cc: Meño Esquivel MD
[2020-01-24] MEDS: PRAVACHOL PO SCH (23:00)
[2020-01-25] MEDS: AZACTAM 1 GM in NS 50 ML IV SCH ×2 (01:33→10:33)
[2020-01-25] MEDS: ZYVOX 600 MG/D5W 600 MG/300 ML IVPB SCH (01:35)
--- NOTE | 2020-01-25 04:18 | PROGRESS NOTE ---
DATE: 01/24/2020 SUBJECTIVE: Mr. Day's left groin incision looks okay. Through an visitor services specialist he says his foot feels better. His left foot is being dressed daily by our nurses. He is on IV Zyvox. He is also on Plavix and aspirin. OBJECTIVE: Vital signs: His heart rate is 76, blood pressure 138/69, O2 saturation is 96% and he is afebrile. LABS: Electrolytes are within normal limits this morning. His glucose was 127. cc: Kiarra Patel MD
[2020-01-25] MEDS: HUMALOG SUBQ SCH (06:31)
[2020-01-25 06:32] LABS: CREATININE 1.2 mg/dL (0.7-1.2); POTASSIUM 4.3 mmol/L (3.5-5.1)
[2020-01-25] MEDS ORDERED: HUMULIN 70/30 SUBQ SCH ×2 (07:30)
[2020-01-25 07:52] VITALS: BP 102/58
[2020-01-25] MEDS: PRINIVIL PO SCH (08:23)
[2020-01-25] MEDS: DIFLUCAN PO SCH (08:23)
[2020-01-25] MEDS: PLAVIX PO SCH (08:23)
[2020-01-25] MEDS: SSD CREAM TOP SCH (08:24)
[2020-01-25] MEDS: ASPIRIN PO SCH (08:24)
--- NOTE | 2020-01-25 09:51 | GENERAL SURGERY PROGRESS NOTE ---
DATE: 01/25/2020 SUBJECTIVE: Mr. Day's groin is okay. I think the plantar aspect of his third toe looks a little bit better. There is less erythema. I am content with him to go home on p.o. antibiotics. He should use Silvadene on his wound daily, cleaning it with Vashe at each setting. I will order him a Darco shoe with Peg-Assist sole to try to help offload that spot. He should return to see me in follow-up in the [facility] this coming Saturday at 3 p.m. cc: Jose Bruno MD
--- NOTE | 2020-01-25 14:47 | DISCHARGE SUMMARY ---
ADMISSION DATE: 01/16/2020 DISCHARGE DATE: 01/25/2020 PRIMARY CARE PROVIDER: None. PERTINENT PROCEDURES: Foot x-ray pedal edema, peripheral artery disease, aorta runoff of CTA possible poor contrast timing of the right lower leg, critical stenosis of the left popliteal artery, apparent occlusion to left anterior, posterior tibial arteries, arthrectomy and balloon angioplasty on the left by Dr. Bruno. DISCHARGE DIAGNOSIS: 1. Left popliteal occlusion with ulceration of the 3rd toe base status post femoral artery access with ultrasound guidance anterograde of the left popliteal artery arthrotomy with an H1LS arthrectomy catheter then followed by 5 x 6 inch PACT drug coated balloon angioplasty followed by Dr. Bruno. Patient has been doing well be discharged home today. 2. Cellulitis at the dorsal level the foot, patient has been on antibiotics. 3. Uncontrolled diabetes mellitus type 2, hemoglobin A1c of 10.7. Medications have been adjusted. 4. Likely chronic kidney disease secondary to diabetes type 2 uncontrolled. 5. Hypertension. Blood pressure is improved. HOSPITAL COURSE: Briefly Mr. Day is a 69-year-old gentleman with a past medical history of coronary artery disease status post CABG in 2006, prostate surgery 7 years ago in [place], diabetes uncontrolled. He has been using metformin and Novolin N 20 units twice a day. He does not measure his blood sugar readings at home or blood pressure. He presented to the ED secondary to redness and pain and ulceration on the plantar surface at the base of his 3rd left foot. There is also some redness noted at the dorsal aspect of the left foot. He had gone and seen a doctor 6 days prior who placed him on Bactrim with no improvement. Initial x-ray showed some pedal edema and peripheral arterial disease. He was placed on antibiotics and consulted General Surgery. He underwent a arthrectomy and balloon angioplasty on the left with Dr. Jose Bruno. He has had improvement in that 3rd toe with less erythema and he has their okay to go home on p.o. antibiotics and Silvadene on the wound daily cleansing it with Vashe as well as a Darco shoe with a PegAssist sole to help offload and will follow up with Dr. Bruno at [facility] this coming Saturday at 3 p.m. VITAL SIGNS: At time of discharge temperature is 98.6 degrees, heart rate 70, respirations 16, blood pressure 102/50, O2 is 98% on room air. DISCHARGE DIET: Diabetic. DISCHARGE MEDICATIONS: 1. Metformin 850 mg p.o. b.i.d. 2. Pravachol 80 mg p.o. at bedtime. 3. Aspirin 81 mg p.o. daily. 4. Doxycycline 100 mg p.o. b.i.d. 5. Humulin 70/30 20 units subcu 15 minutes before breakfast. 6. Plavix 75 mg p.o. daily. 7. Prinivil 10 mg p.o. daily. FOLLOWUP: Mr. Day is being discharged back home with self care. He is to continue wound care as described as well as follow up in the [facility] this Saturday at 3 p.m. with MARK Dunlap in 1 week. He is to take all medications as prescribed. He can return to the ED or call 911 for any worsening of symptoms. Dictated by MARK Masterson for Meño Esquivel MD cc: MARK Ceja [facility]
== END 2020-01-25 11:31 | disposition home or self-care (01) | DRG 271 ==
LOC: ED 12:07 → 4N 15:10 → SUATTDRO 15:10
PROVIDERS: ATTEND Internal Medicine